=== PATIENT | female | born 1995 | race Caucasian/White ===

== ENCOUNTER 2023-05-02 10:37 | Day surgery (SDC) | payer OTHER ==
[2023-05-02] MEDS ORDERED: Acetaminophen 500 MG TAB ONE (11:12)
[2023-05-02] MEDS ORDERED: Acetaminophen 500 MG TAB PO SCH (11:30)
[2023-05-02] MEDS ORDERED: Iron Sucrose Complex 500 MG in Sodium Chloride 0.9% 250 ML 250 ML IVPB SCH (11:30)
== END 2023-05-02 16:10 | disposition home or self-care (01) ==
LOC: CSHSDC 10:37
PROVIDERS: ATTEND Advanced Practice Midwife
DX: O99.019 Anemia complicating pregnancy, unspecified trimester (principal); Z3A.00 Weeks of gestation of pregnancy not specified; Z88.0 Allergy status to penicillin
CPT/HCPCS: J1756; J7050

== ENCOUNTER 2023-07-31 07:49 | Inpatient (IN) | payer OTHER ==
[2023-07-31] MEDS ORDERED: Promethazine HCl 25 MG/ML VIAL IM PRN (07:50)
[2023-07-31] MEDS ORDERED: hydrALAZINE 20 MG/ML VIAL SLOW IVP PRN ×2 (07:50→14:01)
[2023-07-31] MEDS ORDERED: Lactated Ringer's 1,000 ML IV PRN (07:50)
[2023-07-31] MEDS ORDERED: Ondansetron PF 4 MG/2 ML Vial IVP PRN (07:50)
[2023-07-31] MEDS ORDERED: HYDROcodone/Acetaminophen 5/325 mg Tablet PO PRN ×3 (07:50→14:01)
[2023-07-31] MEDS ORDERED: Lidocaine 1% (PF) 30 ML VIAL SC PRN (07:50)
[2023-07-31] MEDS ORDERED: Misoprostol 200 MCG TAB PR PRN (07:50)
[2023-07-31 07:59] VITALS: BMI 29.2
[2023-07-31 08:45] LABS: Hemoglobin 12.8 g/dL (12.0-15.5); Mean Corpuscular HGB CONC 34.6 g/dL (32.0-36.0); Mean Corpuscular Volume 92.5 fl (81.6-98.3); Platelet Count 230 10x3/uL (150-450); RBC Distribution Width 12.8 % (11.5-14.5); White Blood Cell (WBC) Count 17.5 10x3/uL (3.5-10.5)
[2023-07-31 09:23] LABS: Syphilis Antibody Nonreactive (Nonreactive)
[2023-07-31 09:24] LABS: Hep B Surf Ag - L&D Non-Reactive S/CO (NonReactive)
[2023-07-31] MEDS ORDERED: fentaNYL 50 mcg/mL 1 mL Vial SLOW IVP SCH (12:45)
[2023-07-31] MEDS: Oxytocin 30 units/NS 500 ML 500 ML IV SCH (13:23)
[2023-07-31] MEDS: Ibuprofen 800 MG TAB PO PRN (13:23)
[2023-07-31] MEDS ORDERED: Benzocaine-Menthol 82.5 ML CAN TOP PRN (14:01)
[2023-07-31] MEDS ORDERED: Oxytocin 30 units/NS 500 ML 500 ML IV SCH (14:01)
[2023-07-31] MEDS ORDERED: Lanolin Ointment 7 GM TUBE TOP PRN (14:01)
[2023-07-31] MEDS ORDERED: Milk Of Magnesia 30 ML UDCUP PO PRN (14:01)
[2023-07-31] MEDS ORDERED: Bisacodyl 10 MG SUPP PR PRN (14:01)
[2023-07-31] MEDS ORDERED: Misoprostol 200 MCG TAB VAG PRN (14:01)
[2023-07-31] MEDS: HYDROcodone/Acetaminophen 5/325 mg Tablet PO PRN (14:17)
[2023-07-31] MEDS: Lidocaine 1% (PF) 30 ML VIAL ONE (15:48)
[2023-07-31] MEDS: Oxytocin 10 UNITS/ML VIAL ONE (15:52)
[2023-07-31] MEDS: Oxytocin 30 units/NS 500 ML 500 ML ONE (15:52)
[2023-07-31] MEDS: Boostrix 0.5 ML (Tdap) VIAL (>/=7 yrs of age) IM ONE (15:52)
[2023-07-31] MEDS: Ferrous Sulfate 325 MG TAB PO SCH (16:22)
[2023-07-31] MEDS: Ibuprofen 800 MG TAB PO SCH (21:23)
[2023-07-31] MEDS: Docusate 100 MG CAP PO SCH (21:24)
[2023-08-01] MEDS: Prenatal Vitamin 1 TAB PO SCH (08:04)
[2023-08-02 07:51] VITALS: BP 116/65; TEMP 97.8
== END 2023-08-02 11:50 | disposition home or self-care (01) | DRG 807 ==
LOC: CSHLD 07:49 → CSHPED 14:30
PROVIDERS: ADMIT Obstetrics & Gynecology; ATTEND Obstetrics & Gynecology
PROC: 10E0XZZ Delivery of Products of Conception, External Approach (ICD-10-PCS; principal; 2023-07-31)
DX: O42.02 Full-term premature rupture of membranes, onset of labor within 24 hours of rupture (principal); Z37.0 Single live birth; Z3A.38 38 weeks gestation of pregnancy; O69.81X0 Labor and delivery complicated by cord around neck, without compression, not applicable or unspecified; O77.0 Labor and delivery complicated by meconium in amniotic fluid
CPT/HCPCS: 36415; 85027; 86780; 86850; 86900; 86901; 87340; J2590